=== PATIENT | female | born 1960 ===

== ENCOUNTER 2020-01-05 18:37 | Inpatient (IN) | payer MEDICAID ==
[~2020-01-05] VITALS: Ht 157.5 cm; Wt 73.3 kg
[2020-01-05 22:49] VITALS: BP 150/81
[2020-01-05] MEDS: PLEASE ENTER ALLERGIES MC SCH (23:45)
[2020-01-06] MEDS: D5%-0.45NACL+KCL 20MEQ 1,000 ML IV SCH ×3 (00:11→18:16)
[2020-01-06 00:28] VITALS: BP 130/73
[2020-01-06] MEDS: PLEASE ENTER ALLERGIES MC SCH (00:31)
[2020-01-06 04:58] LABS: BASOPHILS # (AUTO) 0.03 x10^3/uL (0-0.1); BASOPHILS % (AUTO) 1 % (0-1); EOSINOPHILS # (AUTO) 0.14 x10^3/uL (0-0.4); EOSINOPHILS % (AUTO) 2 % (1-7); LYMPHOCYTES # (AUTO) 2.18 x10^3/uL (1-3.4); LYMPHOCYTES % (AUTO) 38 % (22-44); MD NO; MEAN CORPUSCULAR HEMOGLOBIN 31.8 pg (27.0-34.8); MEAN CORPUSCULAR HGB CONC 33.4 g/dL (32.4-35.8); MEAN CORPUSCULAR VOLUME 95.3 fL (80-100); MONOCYTES # (AUTO) 0.51 x10^3/uL (0.2-0.8); MONOCYTES % (AUTO) 9 % (2-9); NEUTROPHILS # (AUTO) 2.93 x10^3/uL (1.8-6.8); NEUTROPHILS % (AUTO) 51 % (42-75); PLATELET COUNT 313 x10^3/uL (130-400); RED BLOOD COUNT 3.74 x10^6/uL (3.82-5.3); RED CELL DISTRIBUTION WIDTH 13.3 % (9.6-15.2)
[2020-01-06 05:05] LABS: ALBUMIN 2.4 g/dL (3.4-5.0); ANION GAP 5 mmol/L (5-15); CALCIUM 7.8 mg/dL (8.5-10.1); CHLORIDE 114 mmol/L (98-107)
[2020-01-06 05:09] LABS: ALANINE AMINOTRANSFERASE 17 U/L (12-78); ALKALINE PHOSPHATASE 48 U/L (45-117); BILIRUBIN,TOTAL 0.5 mg/dL (0.2-1.0); CREATININE 0.75 mg/dL (0.55-1.02)
[2020-01-06 07:27] VITALS: BP 147/93
[2020-01-06] MEDS: HYDROcodone/APAP 5/325 TABLET PO PRN ×4 (09:34→23:55)
[2020-01-06 12:37] VITALS: BP 135/86
[2020-01-06 19:25] VITALS: BP 160/84
[2020-01-07 00:02] VITALS: BP 159/84
[2020-01-07] MEDS: D5%-0.45NACL+KCL 20MEQ 1,000 ML IV SCH ×3 (02:04→18:38)
[2020-01-07] MEDS: HYDROcodone/APAP 5/325 TABLET PO PRN ×3 (04:22→14:33)
[2020-01-07] MEDS ORDERED: DIPHENHYDRAMINE 25 MG CAPSULE PO PRN (08:30)
[2020-01-07] MEDS ORDERED: ACETAMINOPHEN 325 MG TABLET PO PRN (08:30)
[2020-01-07 09:20] VITALS: BP 128/68
[2020-01-07] MEDS: ONDANSETRON ODT 4 MG PO PRN ×2 (14:32→21:30)
[2020-01-07 14:37] VITALS: BP 132/81
[2020-01-07] MEDS ORDERED: HYDROcodone/APAP 10/325 MG TABLET PO PRN (18:30)
[2020-01-07 19:17] VITALS: BP 130/78
[2020-01-07] MEDS: MORPHINE SULFATE 4 MG/ML, 1ML IVPush PRN (23:35)
[2020-01-08 01:02] VITALS: BP 133/78
[2020-01-08] MEDS: MORPHINE SULFATE 4 MG/ML, 1ML IVPush PRN ×6 (03:38→22:28)
[2020-01-08] MEDS: D5%-0.45NACL+KCL 20MEQ 1,000 ML IV SCH (03:42)
[2020-01-08 05:16] LABS: ANION GAP 6 mmol/L (5-15); CALCIUM 8.2 mg/dL (8.5-10.1); CHLORIDE 111 mmol/L (98-107); CREATININE 0.63 mg/dL (0.55-1.02)
[2020-01-08 05:17] LABS: INTERNATIONAL NORMALIZED RATIO 0.94 (0.93-1.1)
[2020-01-08 06:34] VITALS: BP 144/83
[2020-01-08] MEDS ORDERED: ONDANSETRON 2MG/ML, 2ML ONE (06:47)
[2020-01-08] MEDS: ONDANSETRON 2MG/ML, 2ML IVPush PRN ×3 (06:49→22:27)
[2020-01-08] MEDS ORDERED: FAMOTIDINE 20 MG TABLET PO SCH (09:00)
[2020-01-08] MEDS ORDERED: DIPHENHYDRAMINE 50 MG/ML, 1ML IVPush PRN (10:00)
[2020-01-08] MEDS: PROCHLORPERAZINE 5 MG/ML, 2ML IVPush PRN (10:18)
[2020-01-08] MEDS ORDERED: GOLYTELY 4,000ML ORAL.SOL PO ONE (14:00)
[2020-01-08 14:14] VITALS: BP 119/74
[2020-01-08 19:40] VITALS: BP 124/80
[2020-01-08] MEDS ORDERED: PINK LADY ENEMA 490 ML BOTTLE PR SCH (20:00)
[2020-01-08] MEDS ORDERED: D5%-0.45NACL+KCL 20MEQ 1,000 ML IV SCH (22:54)
[2020-01-08] MEDS: FAMOTIDINE 20 MG/2 ML IVPush SCH (23:02)
[2020-01-09] MEDS: PROCHLORPERAZINE 5 MG/ML, 2ML IVPush PRN (02:04)
[2020-01-09 02:05] VITALS: BP 116/70
[2020-01-09] MEDS: MORPHINE SULFATE 4 MG/ML, 1ML IVPush PRN ×2 (02:57→07:06)
[2020-01-09 06:05] LABS: BASOPHILS # (AUTO) 0.03 x10^3/uL (0-0.1); BASOPHILS % (AUTO) 0 % (0-1); EOSINOPHILS # (AUTO) 0.01 x10^3/uL (0-0.4); EOSINOPHILS % (AUTO) 0 % (1-7); LYMPHOCYTES # (AUTO) 1.24 x10^3/uL (1-3.4); LYMPHOCYTES % (AUTO) 16 % (22-44); MD NO; MEAN CORPUSCULAR HEMOGLOBIN 31.7 pg (27.0-34.8); MEAN CORPUSCULAR HGB CONC 32.8 g/dL (32.4-35.8); MEAN CORPUSCULAR VOLUME 96.8 fL (80-100); MEAN PLATELET VOLUME 8.5 fL (7.4-10.4); MONOCYTES # (AUTO) 0.53 x10^3/uL (0.2-0.8); MONOCYTES % (AUTO) 7 % (2-9); NEUTROPHILS # (AUTO) 6.07 x10^3/uL (1.8-6.8); NEUTROPHILS % (AUTO) 77 % (42-75); PLATELET COUNT 388 x10^3/uL (130-400); RED BLOOD COUNT 4.02 x10^6/uL (3.82-5.3); RED CELL DISTRIBUTION WIDTH 13.5 % (9.6-15.2)
[2020-01-09 06:19] LABS: ANION GAP 7 mmol/L (5-15); CALCIUM 8.5 mg/dL (8.5-10.1); CHLORIDE 111 mmol/L (98-107)
[2020-01-09 06:20] LABS: CREATININE 0.79 mg/dL (0.55-1.02)
[2020-01-09 07:08] VITALS: BP 12/73
[2020-01-09] MEDS: FAMOTIDINE 20 MG/2 ML IVPush SCH ×2 (07:53→21:00)
[2020-01-09 09:48] LABS: HCG UR SG 1.032 (1.003-1.030)
[2020-01-09 13:00] VITALS: BP 110/73
[2020-01-09] MEDS ORDERED: FENTANYL PF 100 MCG/2ML ONE ×2 (13:36→16:55)
[2020-01-09] MEDS ORDERED: DEXAMETHASONE 4 MG/ML, 1ML ONE (13:37)
[2020-01-09] MEDS ORDERED: MIDAZOLAM 1 MG/ML, 2ML ONE (13:37)
[2020-01-09] MEDS ORDERED: SUCCINYLCHOLINE 20 MG/ML, 10ML ONE (13:37)
[2020-01-09] MEDS ORDERED: NEOSTIGMINE 1 MG/ML, 10ML ONE (13:37)
[2020-01-09] MEDS ORDERED: PROPOFOL 10 MG/ML, 20ML ONE (13:37)
[2020-01-09] MEDS ORDERED: ROCURONIUM 10MG/ML,5ML ONE (13:37)
[2020-01-09] MEDS ORDERED: CEFAZOLIN 1,000 MG ONE (13:37)
[2020-01-09] MEDS ORDERED: GLYCOPYRROLATE 0.2MG/1ML, 5ML ONE (13:37)
[2020-01-09] MEDS ORDERED: ONDANSETRON 2MG/ML, 2ML ONE (13:37)
[2020-01-09] MEDS ORDERED: CHLORHEXIDINE 15 ML UDC ONE (13:44)
[2020-01-09] MEDS ORDERED: CHLORHEXIDINE 15 ML UDC MM ONE (14:00)
[2020-01-09] MEDS ORDERED: BUPIVACAINE/PF-EPI 0.25% 1:200K ONE (15:45)
[2020-01-09] MEDS ORDERED: KETAMINE 10 MG/ML, 20ML ONE (15:52)
[2020-01-09] MEDS ORDERED: CEFOTETAN 2 GM ONE (15:52)
[2020-01-09] MEDS ORDERED: PHENYLEPHRINE 10 MG/ML ONE (15:52)
[2020-01-09] MEDS ORDERED: HYDROmorphone 2 MG/ML, 1ML IVPush PRN (17:00)
[2020-01-09] MEDS ORDERED: OXYcodone 5 MG/5 ML ORAL.SOL UDC PO PRN (17:00)
[2020-01-09] MEDS ORDERED: PROMETHAZINE 25 MG/ML, 1ML IV PRN (17:00)
[2020-01-09] MEDS ORDERED: FENTANYL PF 100 MCG/2ML IV PRN (17:00)
[2020-01-09] MEDS ORDERED: ACETAMINOPHEN 325 MG TABLET PO PRN (17:00)
[2020-01-09] MEDS ORDERED: MEPERIDINE/PF 25MG/ML,1ML IVPush PRN (17:00)
[2020-01-09] MEDS ORDERED: PIPERACILLIN/TAZO/PMX 3.375GM 50 ML ONE (21:13)
[2020-01-10] VITALS (44 sets, daily range): BP systolic 64–125; BP diastolic 40–75
[2020-01-10] MEDS ORDERED: KETOROLAC 30 MG/1 ML IVPush PRN (00:30)
[2020-01-10] MEDS ORDERED: HEPARIN 1,000 UNITS/ML, 10ML ONE (00:41)
[2020-01-10] MEDS ORDERED: INSULIN SINGLE DOSE, ER ONE (00:45)
[2020-01-10] MEDS ORDERED: METRONIDAZOLE PMX 500MG/100ML 100 ML ONE (00:54)
[2020-01-10] MEDS ORDERED: MIDAZOLAM 1 MG/ML, 2ML ONE ×2 (00:59→01:00)
[2020-01-10 01:01] LABS: MEAN CORPUSCULAR HEMOGLOBIN 30.9 pg (27.0-34.8); MEAN CORPUSCULAR HGB CONC 31.2 g/dL (32.4-35.8); MEAN PLATELET VOLUME 7.9 fL (7.4-10.4); PLATELET COUNT 316 x10^3/uL (130-400); RED BLOOD COUNT 3.13 x10^6/uL (3.82-5.3); RED CELL DISTRIBUTION WIDTH 15.6 % (9.6-15.2)
[2020-01-10 01:09] LABS: INTERNATIONAL NORMALIZED RATIO 1.67 (0.93-1.1); PROTHROMBIN TIME 17.8 Seconds (9.6-11.5)
[2020-01-10 01:21] LABS: BASOPHILS # (AUTO) 0.04 x10^3/uL (0-0.1); BASOPHILS % (AUTO) 0 % (0-1); EOSINOPHILS # (AUTO) 0.07 x10^3/uL (0-0.4); EOSINOPHILS % (AUTO) 1 % (1-7); LYMPHOCYTES # (AUTO) 5.86 x10^3/uL (1-3.4); LYMPHOCYTES % (AUTO) 41 % (22-44); MD SCAN; MONOCYTES # (AUTO) 0.32 x10^3/uL (0.2-0.8); MONOCYTES % (AUTO) 2 % (2-9); NEUTROPHILS # (AUTO) 7.92 x10^3/uL (1.8-6.8); NEUTROPHILS % (AUTO) 56 % (42-75)
[2020-01-10] MEDS ORDERED: OMNIPAQUE 350 MG/ML, 100ML BOTTLE ONE (01:21)
[2020-01-10] MEDS ORDERED: NOREPINEPHRINE 1 MG/ML, 4ML ONE (01:23)
[2020-01-10] MEDS ORDERED: NOREPINEPHRINE 8 MG in SODIUM CHLORIDE 0.9% 242 ML IV PRN ×2 (01:28→01:30)
[2020-01-10] MEDS: SODIUM BICARBONATE 8.4% 150 MEQ in DEXTROSE 5% 1,000 ML IV SCH ×2 (01:30→09:01)
[2020-01-10] MEDS ORDERED: PHARMACY MAY ADJ FOR RENAL FX MC SCH (01:30)
[2020-01-10] MEDS ORDERED: LIDOCAINE-MPF 1%, 2ML ENDO PRN (01:30)
[2020-01-10] MEDS ORDERED: SODIUM BICARBONATE 1 MEQ/ML, 50ML VIAL ONE ×2 (01:34→02:09)
[2020-01-10 01:49] LABS: ANION GAP 22 mmol/L (5-15); CALCIUM 6.6 mg/dL (8.5-10.1); CHLORIDE 117 mmol/L (98-107); CREATININE 2.15 mg/dL (0.55-1.02); TRIGLYCERIDES 60 mg/dL (50-200)
[2020-01-10 01:52] LABS: TROPONIN I 0.039 ng/mL (0.000-0.045)
[2020-01-10] MEDS ORDERED: SODIUM BICARB 8.4%, 50ML SYRINGE IVPush STA (02:08)
[2020-01-10 02:11] LABS: MEAN CORPUSCULAR HEMOGLOBIN 31.1 pg (27.0-34.8); MEAN CORPUSCULAR HGB CONC 32.3 g/dL (32.4-35.8); MEAN CORPUSCULAR VOLUME 96.2 fL (80-100); MEAN PLATELET VOLUME 7.7 fL (7.4-10.4); PLATELET COUNT 264 x10^3/uL (130-400); RED BLOOD COUNT 2.15 x10^6/uL (3.82-5.3); RED CELL DISTRIBUTION WIDTH 15.3 % (9.6-15.2)
[2020-01-10] MEDS: VASOPRESSIN 20 UNIT in SODIUM CHLORIDE 0.9% 99 ML IV PRN ×2 (02:15→07:46)
[2020-01-10] MEDS ORDERED: CALCIUM GLUCONATE 0.46MEQ/1ML IVPush ONE ×4 (02:30→11:00)
[2020-01-10] MEDS ORDERED: SODIUM CHLORIDE 0.9% 1,000 ML IV SCH (02:30)
[2020-01-10] MEDS: PHENYLEPHRINE 50 MG in SODIUM CHLORIDE 0.9% 245 ML IV PRN ×3 (02:57→07:46)
[2020-01-10 03:03] LABS: BASOPHILS # (AUTO) 0.03 x10^3/uL (0-0.1); BASOPHILS % (AUTO) 0 % (0-1); EOSINOPHILS # (AUTO) 0.05 x10^3/uL (0-0.4); EOSINOPHILS % (AUTO) 0 % (1-7); LYMPHOCYTES # (AUTO) 4.27 x10^3/uL (1-3.4); LYMPHOCYTES % (AUTO) 40 % (22-44); MD SCAN; MONOCYTES # (AUTO) 0.32 x10^3/uL (0.2-0.8); MONOCYTES % (AUTO) 3 % (2-9); NEUTROPHILS % (AUTO) 57 % (42-75)
[2020-01-10 03:33] LABS: MEAN CORPUSCULAR HGB CONC 33.3 g/dL (32.4-35.8); RED BLOOD COUNT 2.45 x10^6/uL (3.82-5.3); RED CELL DISTRIBUTION WIDTH 14.7 % (9.6-15.2)
[2020-01-10] MEDS ORDERED: SODIUM BICARBONATE 1 MEQ/ML, 50ML VIAL IVPush ONE (04:00)
[2020-01-10] MEDS: PIPERACILLIN/TAZO/PMX 3.375GM 50 ML IV SCH ×2 (04:04→10:13)
[2020-01-10 04:18] LABS: BASOPHILS # (AUTO) 0.01 x10^3/uL (0-0.1); BASOPHILS % (AUTO) 0 % (0-1); EOSINOPHILS # (AUTO) 0.03 x10^3/uL (0-0.4); EOSINOPHILS % (AUTO) 1 % (1-7); LYMPHOCYTES # (AUTO) 2.59 x10^3/uL (1-3.4); LYMPHOCYTES % (AUTO) 43 % (22-44); MD SCAN; MEAN PLATELET VOLUME 7.6 fL (7.4-10.4); MONOCYTES # (AUTO) 0.04 x10^3/uL (0.2-0.8); MONOCYTES % (AUTO) 1 % (2-9); NEUTROPHILS % (AUTO) 55 % (42-75); PLATELET COUNT 173 x10^3/uL (130-400)
[2020-01-10] MEDS: NOREPINEPHRINE 32 MG in SODIUM CHLORIDE 0.9% 218 ML IV PRN ×2 (05:22→07:45)
[2020-01-10] MEDS ORDERED: PHYTONADIONE 10 MG/ML, 1ML ONE (05:28)
[2020-01-10] MEDS ORDERED: PHYTONADIONE 10 MG in SODIUM CHLORIDE 0.9% 50 ML IV ONE (05:30)
[2020-01-10] MEDS ORDERED: SODIUM BICARBONATE 1 MEQ/ML, 50ML VIAL IVPush STA ×2 (05:46→06:45)
[2020-01-10 05:59] LABS: CHLORIDE 115 mmol/L (98-107)
[2020-01-10 06:18] LABS: ALANINE AMINOTRANSFERASE 3181 U/L (12-78); ALBUMIN 0.8 g/dL (3.4-5.0); ALKALINE PHOSPHATASE 38 U/L (45-117); ANION GAP 24 mmol/L (5-15); BILIRUBIN,TOTAL 1.1 mg/dL (0.2-1.0); CREATININE 1.93 mg/dL (0.55-1.02); TOTAL PROTEIN 2.1 g/dL (6.4-8.2)
[2020-01-10 06:24] LABS: CALCIUM 5.7 mg/dL (8.5-10.1)
[2020-01-10 07:02] LABS: MEAN CORPUSCULAR HEMOGLOBIN 30.5 pg (27.0-34.8); MEAN CORPUSCULAR HGB CONC 33.2 g/dL (32.4-35.8); MEAN CORPUSCULAR VOLUME 91.8 fL (80-100); MEAN PLATELET VOLUME 7.5 fL (7.4-10.4); PLATELET COUNT 74 x10^3/uL (130-400); RED BLOOD COUNT 4.38 x10^6/uL (3.82-5.3); RED CELL DISTRIBUTION WIDTH 14.5 % (9.6-15.2)
[2020-01-10 07:05] LABS: BASOPHILS # (AUTO) 0.01 x10^3/uL (0-0.1); BASOPHILS % (AUTO) 0 % (0-1); EOSINOPHILS # (AUTO) 0.02 x10^3/uL (0-0.4); EOSINOPHILS % (AUTO) 1 % (1-7); LYMPHOCYTES # (AUTO) 2.08 x10^3/uL (1-3.4); LYMPHOCYTES % (AUTO) 43 % (22-44); MD SCAN; MONOCYTES # (AUTO) 0.06 x10^3/uL (0.2-0.8); MONOCYTES % (AUTO) 1 % (2-9); NEUTROPHILS # (AUTO) 2.68 x10^3/uL (1.8-6.8); NEUTROPHILS % (AUTO) 55 % (42-75)
[2020-01-10] MEDS ORDERED: ALBUMIN HUMAN 25% 100 ML IV SCH (07:30)
[2020-01-10] MEDS ORDERED: SODIUM BICARB 8.4%, 50ML SYRINGE ONE (08:00)
[2020-01-10] MEDS ORDERED: EPINEPHRINE SYRINGE 0.1 MG/ML, 10ML ONE (08:00)
[2020-01-10] MEDS ORDERED: CALCIUM CHLORIDE 10%, 10ML SYR ONE (08:00)
[2020-01-10] MEDS ORDERED: DEXTROSE 50%, 50ML SYRINGE ONE (08:00)
[2020-01-10] MEDS ORDERED: ALBUMIN HUMAN 5% 500 ML IV ONE (08:00)
[2020-01-10] MEDS ORDERED: ATROPINE SYRINGE 0.1 MG/ML, 10ML ONE (08:00)
[2020-01-10] MEDS: FAMOTIDINE 20 MG/2 ML IVPush SCH (09:09)
[2020-01-10 09:19] LABS: INTERNATIONAL NORMALIZED RATIO 1.44 (0.93-1.1); PROTHROMBIN TIME 15.3 Seconds (9.6-11.5)
[2020-01-10 09:20] LABS: ANION GAP 26 mmol/L (5-15); CALCIUM 6.2 mg/dL (8.5-10.1); CHLORIDE 116 mmol/L (98-107); CREATININE 2.19 mg/dL (0.55-1.02)
[2020-01-10 09:24] LABS: TROPONIN I 0.424 ng/mL (0.000-0.045)
[2020-01-10] MEDS ORDERED: D5%-0.45% NACL 1,000 ML IV SCH ×2 (09:30)
[2020-01-10 09:41] LABS: MEAN CORPUSCULAR HEMOGLOBIN 30.9 pg (27.0-34.8); MEAN CORPUSCULAR HGB CONC 34.3 g/dL (32.4-35.8); MEAN PLATELET VOLUME 8.6 fL (7.4-10.4); RED BLOOD COUNT 1.31 x10^6/uL (3.82-5.3); RED CELL DISTRIBUTION WIDTH 14.3 % (9.6-15.2)
[2020-01-10 09:43] LABS: PLATELET COUNT 31 x10^3/uL (130-400)
[2020-01-10 10:01] LABS: MD YES
[2020-01-10 10:08] LABS: BAND#(MANUAL) 0.04 x10^3/uL; BANDS%(MANUAL) 6 % (0-7); EOS#(MANUAL) 0.01 x10^3/uL (0.0-0.4); EOS% (MANUAL) 1 % (1-7); LYMPH#(MANUAL) 0.34 x10^3/uL (1-3.4); LYMPHS% (MANUAL) 49 % (22-44); METAMYELOCYTES% (MANUAL) 14 % (0-1); MONOS#(MANUAL) 0.04 x10^3/uL (0.3-2.7); MONOS% (MANUAL) 6 % (2-9); MYELOCYTES# (MANUAL) 0.01 x10^3/uL (0-0); MYELOCYTES% (MANUAL) 2 % (0-0); SEG#(MANUAL) 0.15 x10^3/uL (1.8-6.8); SEGS% (MANUAL) 21 % (42-75)
[2020-01-10 10:26] LABS: NRBC % (MANUAL) 1 % (0-1); OTHER CELLS # (MANUAL) 0.01 x10^3/uL (0-0); OTHER CELLS % (MANUAL) 1 % (0-0)
[2020-01-10 10:29] LABS: <PLATELET ESTIMATE> DECREASED; <PLT MORPHOLOGY> NORMAL PLT MORPH; ECHINOCYTES 1+
[2020-01-10 10:30] LABS: SPHEROCYTES 1+
[2020-01-10] MEDS ORDERED: MORPHINE SULFATE 4 MG/ML, 1ML ONE (12:55)
[2020-01-10] MEDS ORDERED: LORazepam 2 MG/ML, 1ML ONE (12:56)
[2020-01-10] MEDS ORDERED: LORazepam 2 MG/ML, 1ML IV ONE (13:00)
[2020-01-10] MEDS ORDERED: LORazepam 2 MG/ML, 1ML IV PRN (13:00)
[2020-01-10] MEDS ORDERED: ONDANSETRON 2MG/ML, 2ML IV PRN (13:00)
[2020-01-10] MEDS ORDERED: ATROPINE OPHTH SOLN 1%, 5ML PO PRN (13:00)
[2020-01-10] MEDS ORDERED: MORPHINE SULFATE 4 MG/ML, 1ML IV ONE (13:00)
[2020-01-10] MEDS ORDERED: MORPHINE SULFATE 4 MG/ML, 1ML IV PRN (13:00)
[2020-01-10] MEDS ORDERED: D5%-0.45NACL+KCL 20MEQ 1,000 ML IV SCH (22:54)
== END 2020-01-10 14:05 | disposition expired | DRG 231 ==
LOC: 3N 19:56 → 3WST 01-08 14:21 → CCU 01-10 01:20
PROVIDERS: ADMIT Specialist; ATTEND Specialist
PROC: 0D1N0Z4 Bypass Sigmoid Colon to Cutaneous, Open Approach (ICD-10-PCS; 2020-01-09)
PROC: 0UT20ZZ Resection of Bilateral Ovaries, Open Approach (ICD-10-PCS; 2020-01-09)
PROC: 0UT70ZZ Resection of Bilateral Fallopian Tubes, Open Approach (ICD-10-PCS; 2020-01-09)
PROC: 07BC0ZZ Excision of Pelvis Lymphatic, Open Approach (ICD-10-PCS; 2020-01-09)
PROC: 0DBN0ZZ Excision of Sigmoid Colon, Open Approach (ICD-10-PCS; 2020-01-09)
PROC: 0DTU0ZZ Resection of Omentum, Open Approach (ICD-10-PCS; 2020-01-09)
PROC: 0UT90ZZ Resection of Uterus, Open Approach (ICD-10-PCS; principal; 2020-01-09 12:30)
PROC: 30233K1 Transfusion of Nonautologous Frozen Plasma into Peripheral Vein, Percutaneous Approach (ICD-10-PCS; 2020-01-10)
PROC: 30233N1 Transfusion of Nonautologous Red Blood Cells into Peripheral Vein, Percutaneous Approach (ICD-10-PCS; 2020-01-10)
PROC: 30233R1 Transfusion of Nonautologous Platelets into Peripheral Vein, Percutaneous Approach (ICD-10-PCS; 2020-01-10)
PROC: 30233M1 Transfusion of Nonautologous Plasma Cryoprecipitate into Peripheral Vein, Percutaneous Approach (ICD-10-PCS; 2020-01-10)
PROC: 5A12012 Performance of Cardiac Output, Single, Manual (ICD-10-PCS; 2020-01-10)
DX: K56.609 Unspecified intestinal obstruction, unspecified as to partial versus complete obstruction (principal); D65 Disseminated intravascular coagulation [defibrination syndrome]; I49.01 Ventricular fibrillation; J96.01 Acute respiratory failure with hypoxia; N17.0 Acute kidney failure with tubular necrosis; R18.8 Other ascites; C56.1 Malignant neoplasm of right ovary; E83.51 Hypocalcemia; C56.2 Malignant neoplasm of left ovary; I46.9 Cardiac arrest, cause unspecified; R57.1 Hypovolemic shock; E87.2 Acidosis; E87.6 Hypokalemia; I10 Essential (primary) hypertension; K66.0 Peritoneal adhesions (postprocedural) (postinfection); N80.9 Endometriosis, unspecified; N83.9 Noninflammatory disorder of ovary, fallopian tube and broad ligament, unspecified
CPT/HCPCS: 36415; 36600; 71045; 71275; 80048; 80053; 81025; 82330; 82533; 82803; 82947; 83735; 84132; 84295; 84478; 84484; 85014; 85025; 85347; 85384; 85610; 85730; 86304; 86850; 86900; 86923; 87070; 87081; 87205; 88305; 88307; 88331; 93005; 94002; G0378; J0461; J0610; J0690; J1100; J1644; J2250; J2405; J2543; J2704; J2710; J3010; J3430; J7070; P9045; Q0162; Q9967; J0330; J0780; J1815; J2060; J2270; J2370; J3480; J3490; J7030; J7050; P9012; P9016; P9017; P9035